=== PATIENT | female | born 1945 | race Caucasian/White ===

== ENCOUNTER → 2017-12-17 | Outpatient (CLI) | payer MEDICARE, OTHER ==
[~2017-12-17] MED LIST: ASPI81CH PO; CHOL10002; CVS CALCIUM 501 EAC2; Coq-10100 MG PO; EPIN.3I IM; FEXPSEER PO; FLAX PO; Glycotrol Caps1 EACH PO; HYDR1TAB94 PO; LORPSEER12 PO; MAGOXI400 PO; NAPR220 PO; RANI150 PO; ZINC15 PO
[2017-12-20 11:32] LABS: HPV Genotype 16 Not Detected (NOTDET); HPV Genotype 18 Not Detected (NOTDET)
[2017-12-27 10:59] LABS: HPV High Risk Other Not Detected (NOTDET)
== END | disposition home or self-care (01) ==
LOC: LAB SHORT 14:50 → OLS 14:50
PROVIDERS: Obstetrics & Gynecology Gynecology
DX: Z91.89 Other specified personal risk factors, not elsewhere classified (principal)
CPT/HCPCS: 87624; G0123

== ENCOUNTER → 2019-01-24 | Outpatient (CLI) | payer MEDICARE, OTHER ==
[2019-01-26 15:06] LABS: HPV 16 Negative (Negative); HPV 18 Negative (Negative); HPV OTHER HR TYPES Negative (Negative)
== END | disposition home or self-care (01) ==
LOC: LAB 18:00 → LAB SHORT 18:00
PROVIDERS: Obstetrics & Gynecology Gynecology
DX: Z91.89 Other specified personal risk factors, not elsewhere classified (principal)
CPT/HCPCS: 87624; G0123

== ENCOUNTER 2019-06-21 08:14 | Day surgery (SDC) | payer MEDICARE, OTHER ==
[~2019-06-21] VITALS: Ht 160 cm; Wt 59.7 kg
[~2019-06-21 08:14] MED LIST changes: +Anti-Diarrheal2 MG PO; +Aspir 8181 MG PO; +CLARITIN10 MG PO; +COENZYME Q10100 MG PO; +GRAPE SEED 501 EACH PO; +MAGNESIUM250 MG PO; +SIMV10 PO; +Selenium100 MCG; +TURMERIC COMPL1 EACH PO; +VITAMIN C500 M1 PO; +VITAMIN D31000 UNI2 PO; +Vitamin B-12250 MCG PO
--- NOTE | 2019-06-21 10:05 | NUR ---
06/21/19 Vonda Mccabe AFTER FIRST DOSE OF PROPOFOL THE PATIENT'S OXYGEN SATURATION DROPPED TO 87%, HER EYES WERE STILL OPENED. A POM MASK WAS APPLIED AND OXYGEN WAS TURNED UP TO 10L.
== END 2019-06-21 11:13 | disposition home or self-care (01) ==
LOC: ORSCSDS 08:14
PROVIDERS: Internal Medicine Gastroenterology
PROC: 0DBM8ZX Excision of Descending Colon, Via Natural or Artificial Opening Endoscopic, Diagnostic (ICD-10-PCS; principal; 2019-06-21 09:45)
PROC: 0DBK8ZX Excision of Ascending Colon, Via Natural or Artificial Opening Endoscopic, Diagnostic (ICD-10-PCS; principal; 2019-06-21 09:45)
DX: R19.5 Other fecal abnormalities (principal); D12.2 Benign neoplasm of ascending colon; D12.4 Benign neoplasm of descending colon; K57.30 Diverticulosis of large intestine without perforation or abscess without bleeding; K64.8 Other hemorrhoids; F32.9 Major depressive disorder, single episode, unspecified; E78.5 Hyperlipidemia, unspecified; Z87.891 Personal history of nicotine dependence; Z79.82 Long term (current) use of aspirin; Z79.899 Other long term (current) drug therapy
CPT/HCPCS: 88305; J0330; J0461; J2250; J2405; J2704; J7120

== ENCOUNTER 2023-05-12 12:23 | Emergency (ER) | payer OTHER ==
[~2023-05-12] VITALS: Ht 160 cm; Wt 59.9 kg
[2023-05-12 12:32] VITALS: BP 119/74
[2023-05-12 13:04] LABS: BASOPHILS ABSOLUTE AUTO 0.04 K/mm3 (0.00-0.23); BASOPHILS PERCENT AUTO 1 % (0-2); EOSINOPHILS ABSOLUTE AUTO 0.12 K/mm3 (0.00-0.68); EOSINOPHILS PERCENT AUTO 1 % (0-6); Hematocrit 38.2 % (33.0-51.0); IMMATURE GRAN ABSOLUTE AUTO 0.05 K/mm3 (0.00-0.10); IMMATURE GRAN PERCENT AUTO 1 % (0-1); LYMPHOCYTES ABSOLUTE AUTO 1.97 K/mm3 (0.84-5.20); LYMPHOCYTES PERCENT AUTO 24 % (21-46); MONOCYTES ABSOLUTE AUTO 0.84 K/mm3 (0.16-1.47); MONOCYTES PERCENT AUTO 10 % (4-13); Mean Corpuscular HGB 34.9 pg (26.0-34.0); Mean Corpuscular Volume 102 fL (80-100); Mean Platelet Volume 11.1 fL (9.1-12.4); NEUTROPHILS ABSOLUTE AUTO 5.37 K/mm3 (1.96-9.15); NEUTROPHILS PERCENT AUTO 64 % (41-73); Platelet Count 216 K/mm3 (150-400); RDW Coefficient Variation 12.6 % (11.7-14.2); RDW Standard Deviation 47.2 fL (35.1-46.3); Red Blood Cell Count 3.73 M/mm3 (3.80-5.20); White Blood Cell Count 8.39 K/mm3 (4.00-11.30)
[2023-05-12 13:21] LABS: Albumin, Blood 3.5 g/dL (3.4-5.0); Bilirubin, Total 0.5 mg/dL (0.1-1.0); Calcium, Blood 8.7 mg/dL (8.5-10.1); Creatinine, Blood 0.56 mg/dL (0.40-1.00); Globulin, Blood 3.4 g/dL (2.2-4.0); Potassium, Blood 4.1 mmol/L (3.5-5.5); Total Protein, Blood 6.9 g/dL (6.4-8.2)
[2023-05-12] MEDS ORDERED: CLIN300 PO (14:30)
== END 2023-05-12 14:48 | disposition home or self-care (01) ==
LOC: ER 12:23
PROVIDERS: Physician Assistant
DX: T81.41XA Infection following a procedure, superficial incisional surgical site, initial encounter (principal); L08.9 Local infection of the skin and subcutaneous tissue, unspecified; Z88.8 Allergy status to other drugs, medicaments and biological substances; Z91.048 Other nonmedicinal substance allergy status; Z79.899 Other long term (current) drug therapy; Z79.82 Long term (current) use of aspirin; Z87.891 Personal history of nicotine dependence
CPT/HCPCS: 80053; 85025; 99283

== ENCOUNTER 2023-05-19 17:25 | Emergency (ER) | payer OTHER ==
[~2023-05-19] VITALS: Ht 160 cm; Wt 62.0 kg
[~2023-05-19 17:25] MED LIST changes: +CLIN300 PO
[2023-05-19 18:00] LABS: BASOPHILS ABSOLUTE AUTO 0.07 K/mm3 (0.00-0.23); BASOPHILS PERCENT AUTO 1 % (0-2); EOSINOPHILS ABSOLUTE AUTO 0.21 K/mm3 (0.00-0.68); EOSINOPHILS PERCENT AUTO 3 % (0-6); Hematocrit 37.7 % (33.0-51.0); Hemoglobin 12.9 g/dL (11.5-16.0); IMMATURE GRAN ABSOLUTE AUTO 0.03 K/mm3 (0.00-0.10); IMMATURE GRAN PERCENT AUTO 0 % (0-1); LYMPHOCYTES ABSOLUTE AUTO 2.41 K/mm3 (0.84-5.20); LYMPHOCYTES PERCENT AUTO 29 % (21-46); MONOCYTES ABSOLUTE AUTO 0.74 K/mm3 (0.16-1.47); MONOCYTES PERCENT AUTO 9 % (4-13); Mean Corpuscular HGB 34.6 pg (26.0-34.0); Mean Corpuscular HGB Conc 34.2 g/dL (31.5-36.5); Mean Corpuscular Volume 101 fL (80-100); Mean Platelet Volume 10.8 fL (9.1-12.4); NEUTROPHILS ABSOLUTE AUTO 4.75 K/mm3 (1.96-9.15); NEUTROPHILS PERCENT AUTO 58 % (41-73); Platelet Count 247 K/mm3 (150-400); RDW Coefficient Variation 12.1 % (11.7-14.2); RDW Standard Deviation 45.1 fL (35.1-46.3); Red Blood Cell Count 3.73 M/mm3 (3.80-5.20); White Blood Cell Count 8.21 K/mm3 (4.00-11.30)
[2023-05-19 18:13] LABS: C-REACTIVE PROTEIN, EXT RANGE 0.575 mg/dL (0.000-0.300)
[2023-05-19 18:15] LABS: Albumin, Blood 3.7 g/dL (3.4-5.0); Bilirubin, Total 0.3 mg/dL (0.1-1.0); Bun/Creatinine Ratio 17.2 (12.0-20.0); Calcium, Blood 9.1 mg/dL (8.5-10.1); Creatinine, Blood 0.7 mg/dL (0.40-1.00); Globulin, Blood 3.7 g/dL (2.2-4.0); Potassium, Blood 4.3 mmol/L (3.5-5.5); Total Protein, Blood 7.4 g/dL (6.4-8.2)
[2023-05-19 22:10] VITALS: BP 108/54
== END 2023-05-19 22:22 | disposition home or self-care (01) ==
LOC: ER 17:25
PROVIDERS: Student in an Organized Health Care Education/Training Program
DX: T86.821 Skin graft (allograft) (autograft) failure (principal); X58.XXXA Exposure to other specified factors, initial encounter; Z87.891 Personal history of nicotine dependence; Z91.013 Allergy to seafood; Z88.8 Allergy status to other drugs, medicaments and biological substances; Z91.09 Other allergy status, other than to drugs and biological substances; Z79.82 Long term (current) use of aspirin; Z79.899 Other long term (current) drug therapy
CPT/HCPCS: 36415; 80053; 83605; 85025; 85651; 86140; 96374; 99284-25; A9270; J3370; J7050

== ENCOUNTER 2025-01-28 11:49 | Inpatient (IN) | payer OTHER ==
[~2025-01-28] VITALS: Ht 160 cm; Wt 66.9 kg
[~2025-01-28 11:49] MED LIST changes: +SELENIUM200 MC3 PO; -Selenium100 MCG; -VITAMIN D31000 UNI2 PO; +VITAMIN D350 MC3 PO
[2025-01-28] MEDS ORDERED: HYDROmorphone HCl/Pf 1MG SYR IV ONE ×2 (13:20→15:00)
[2025-01-28 13:37] LABS: BASOPHILS ABSOLUTE AUTO 0.05 K/mm3 (0.00-0.23); BASOPHILS PERCENT AUTO 0 % (0-2); EOSINOPHILS ABSOLUTE AUTO 0.08 K/mm3 (0.00-0.68); EOSINOPHILS PERCENT AUTO 1 % (0-6); Hematocrit 38.5 % (33.0-51.0); Hemoglobin 13.3 g/dL (11.5-16.0); IMMATURE GRAN ABSOLUTE AUTO 0.06 K/mm3 (0.00-0.10); IMMATURE GRAN PERCENT AUTO 1 % (0-1); LYMPHOCYTES ABSOLUTE AUTO 1.34 K/mm3 (0.84-5.20); LYMPHOCYTES PERCENT AUTO 10 % (21-46); MONOCYTES ABSOLUTE AUTO 0.99 K/mm3 (0.16-1.47); MONOCYTES PERCENT AUTO 8 % (4-13); Mean Corpuscular HGB 36.5 pg (26.0-34.0); Mean Corpuscular HGB Conc 34.5 g/dL (31.5-36.5); Mean Corpuscular Volume 106 fL (80-100); Mean Platelet Volume 11.4 fL (9.1-12.4); NEUTROPHILS ABSOLUTE AUTO 10.56 K/mm3 (1.96-9.15); NEUTROPHILS PERCENT AUTO 81 % (41-73); Platelet Count 180 K/mm3 (150-400); RDW Standard Deviation 50.4 fL (35.1-46.3); Red Blood Cell Count 3.64 M/mm3 (3.80-5.20); White Blood Cell Count 13.08 K/mm3 (4.00-11.30)
[2025-01-28 13:54] LABS: Albumin, Blood 3.6 g/dL (3.4-5.0); Albumin/Globulin Ratio 1.2 (0.8-1.8); Bilirubin, Total 0.6 mg/dL (0.1-1.0); Bun/Creatinine Ratio 25.4 (12.0-20.0); Calcium, Blood 8.9 mg/dL (8.5-10.1); Creatinine, Blood 0.55 mg/dL (0.40-1.00); Globulin, Blood 3.1 g/dL (2.2-4.0); Potassium, Blood 4.7 mmol/L (3.5-5.5); Total Protein, Blood 6.7 g/dL (6.4-8.2)
[2025-01-28 15:33] LABS: International Normalized Ratio 1.02; Prothrombin Time Results 10.9 Sec (9.7-11.5)
[2025-01-28 15:37] VITALS: BP 129/61
[2025-01-28] MEDS ORDERED: Morphine Sulfate 4 MG/1 ML Injection IV PRN (15:50)
[2025-01-28] MEDS ORDERED: Ondansetron HCl 2 MG / ML 2ML Vial IV PRN (15:50)
--- NOTE | 2025-01-28 16:39 | NUR ---
ARRIVAL PT ARRIVED AT 1530 FROM ER. R HIP FX W/EXTERNAL ROTATION GLF. PULSE AND SENSATION INTACT. RLE COLD TO TOUCH SIMILAR TO LLE. CAP REFILL < 3 SECONDS. WITNESSED FALL W/O LOC. A&O X4. PT STATES PAIN TOLERABLE, INCREASES WITH MOVEMENT. RECEIVED X1 DOSE OF DILAUDID IN ER PER EMAR. VSS. ON 2L O2 VIA NASAL CANNULA. DENIES SOB. FAMILY AT BEDSIDE. CALL LIGHT IN REACH.
[2025-01-28 18:44] VITALS: BP 126/53
[2025-01-28] MEDS ORDERED: Heparin Sodium,Porcine 5,000 UNIT/0.5 ML SDV SC SCH (21:00)
[2025-01-28] MEDS ORDERED: Lactated Ringer's 1,000 ML IV SCH (23:55)
[2025-01-29] VITALS (19 sets, daily range): BP systolic 111–154; BP diastolic 50–93
--- NOTE | 2025-01-29 04:17 | NUR ---
SHIFT SUMMARY PATIENT IS AOX4, R HIP IS EXTERNALLY ROTATED AND SHORTENED. PEDAL PULSES +3, ABLE TO WIGGLE ALL TOES. NPO AFTER MIDNIGHT. IV FLUIDS RUNNING @ 100/HR. PUREWICK IN PLACE, VOIDING. MEDICATED FOR PAIN PER ORDERS. VSS. ON 2L NC AND CONT. BIOX IN PLACE. SATS REMAIN ABOVE 93%. CALL LIGHT IN REACH.
[2025-01-29] MEDS ORDERED: Tranexamic Acid 100 ML IV SCH (08:55)
[2025-01-29] MEDS ORDERED: Lactated Ringer's 1,000 ML IV SCH (08:55)
[2025-01-29] MEDS ORDERED: Chlorhexidine Mouth Care 15 ML UDC MT SCH (08:55)
[2025-01-29] MEDS ORDERED: Acetaminophen 500 MG Tab PO SCH (08:55)
[2025-01-29] MEDS ORDERED: CeFAZolin Sodium 2,000 MG in NS 100 ML IV SCH ×2 (08:55→18:00)
--- NOTE | 2025-01-29 09:07 | NUR ---
DR WASSERMAN IN TO SEE PT. PT TO OR, FAMILY PRESENT.
[2025-01-29] MEDS ORDERED: propofoL 50 ML IV ONE (09:26)
[2025-01-29] MEDS ORDERED: Magnesium Sulfate 500 MG / ML 2ML Vial ONE (09:26)
[2025-01-29] MEDS ORDERED: Rocuronium Bromide 10 MG/ML 5ML Injection IV ONE ×2 (09:27→11:09)
[2025-01-29] MEDS ORDERED: Lidocaine HCl 2% 20 ML MDV ONE ×2 (09:27→11:09)
[2025-01-29] MEDS ORDERED: FentaNYL Citrate 50 MCG/ML 2 ML Injection ONE (09:27)
--- NOTE | 2025-01-29 09:27 | NUR ---
PT HAS 20G IV IN L WRIST THAT FLOWS WELL TO GRAVITY, SHOWS NO SIGNS OF INFILTRATION, NO SWELLING, NO DRAINAGE NOTED.
[2025-01-29] MEDS ORDERED: Ondansetron HCl 2 MG / ML 2ML Vial ONE ×3 (09:28→11:59)
[2025-01-29] MEDS ORDERED: Metoclopramide HCl 5MG / ML 2ML Vial ONE ×3 (09:28→11:45)
[2025-01-29] MEDS ORDERED: Bupivacaine 0.25% Epi 1:200000 30 ML Vial ONE (10:16)
[2025-01-29] MEDS ORDERED: Sugammadex Sodium 200 MG/2ML SDV (100 MG/ML) ONE (11:09)
[2025-01-29] MEDS ORDERED: FentaNYL Citrate 50 MCG/ML 2 ML Injection IV PRN ×2 (11:10→11:15)
[2025-01-29] MEDS ORDERED: Metoclopramide HCl 5MG / ML 2ML Vial IV PRN (11:10)
[2025-01-29] MEDS ORDERED: Ondansetron HCl 2 MG / ML 2ML Vial IV PRN (11:15)
[2025-01-29] MEDS ORDERED: HYDROmorphone HCl/Pf 1MG SYR IV PRN ×2 (11:15)
--- NOTE | 2025-01-29 12:35 | NUR ---
pt arrived back to room from pacu vss. a&ox4. denies pain. slightly nauseated. rec'd nausea meds in pacu. placed cool compress on forehead. call light in reach. purewick placed. family bedside.
[2025-01-29] MEDS ORDERED: HYDROcodone 5-APAP 325 TAB PO PRN (13:55)
--- NOTE | 2025-01-29 15:13 | NUR ---
Pt. is resting in bed, but responds when I enter the room. Pt. is pleasant. Facilitate a life review and consider matters of lenora and belief. Listen with interest and empathy. Pt. verbalized that she was still experiencing discomfort. Prayed for the pt. Pt. verbalized gratitude and welcomed this production floater to return.
--- NOTE | 2025-01-29 17:20 | NUR ---
summary NO ACUTE CHANGES SINCE ARRIVING BACK TO UNIT FROM PACU. MEDICATED PER ORDERS FOR PAIN AND THEN PT TOOK NAP. NOW AWAKE. DID NOT FEEL UP TO WORKING WITH THERAPY, FELT COULD NOT RAISE LEG. CALL LIGHT IN REACH. PUREWICK DRAINING YELLOW URINE.
--- NOTE | 2025-01-29 18:57 | NUR ---
BEDSIDE REPORT COMPLETED. PT USING PUREWICK. CALL LIGHT IN REACH. SPOUSE BEDSIDE.
[2025-01-30 00:07] VITALS: BP 125/54
[2025-01-30 04:26] VITALS: BP 120/53
[2025-01-30 05:34] LABS: BASOPHILS ABSOLUTE AUTO 0.05 K/mm3 (0.00-0.23); BASOPHILS PERCENT AUTO 1 % (0-2); EOSINOPHILS ABSOLUTE AUTO 0.31 K/mm3 (0.00-0.68); EOSINOPHILS PERCENT AUTO 3 % (0-6); Hematocrit 27.2 % (33.0-51.0); Hemoglobin 9.2 g/dL (11.5-16.0); IMMATURE GRAN ABSOLUTE AUTO 0.05 K/mm3 (0.00-0.10); IMMATURE GRAN PERCENT AUTO 1 % (0-1); LYMPHOCYTES ABSOLUTE AUTO 2.26 K/mm3 (0.84-5.20); LYMPHOCYTES PERCENT AUTO 22 % (21-46); MONOCYTES PERCENT AUTO 10 % (4-13); Mean Corpuscular HGB 36.5 pg (26.0-34.0); Mean Corpuscular HGB Conc 33.8 g/dL (31.5-36.5); Mean Corpuscular Volume 108 fL (80-100); Mean Platelet Volume 11.7 fL (9.1-12.4); NEUTROPHILS PERCENT AUTO 64 % (41-73); Platelet Count 120 K/mm3 (150-400); RDW Coefficient Variation 12.9 % (11.7-14.2); RDW Standard Deviation 51.4 fL (35.1-46.3); Red Blood Cell Count 2.52 M/mm3 (3.80-5.20); White Blood Cell Count 10.27 K/mm3 (4.00-11.30)
[2025-01-30 05:51] LABS: Bun/Creatinine Ratio 23.9 (12.0-20.0); Calcium, Blood 7.9 mg/dL (8.5-10.1); Creatinine, Blood 0.46 mg/dL (0.40-1.00)
--- NOTE | 2025-01-30 06:31 | NUR ---
SHIFT SUMMARY: NO ACUTE EVENTS DURING SHIFT. PT C/O INABILITY TO MOVE RIGHT LEG OFF OF BED; PT ABLE TO FEEL TOUCH OF RIGHT LEG, FOOT AND MOVE FOOT, ACTIVATE QUAD MUSCLES. PT ABLE TO ASSIST IN ROLLING FOR LINEN CHANGE. PT MEDICATED PRN FOR PAIN. PT TOLERATING PO PILLS HOWEVER DOES REPORT PAIN AT BOTH RIGHT HIP AND RIGHT ARM. PT DID NOT GET UP DURING SHIFT SHE STATED SHE WAS NOT READY. PUREWICK IN PLACE THROUGHOUT NIGHT. IV SALINE LOCKED.
[2025-01-30 06:55] VITALS: BP 117/53
--- NOTE | 2025-01-30 07:36 | NUR ---
BAN/PT IN TO SEE PT.
--- NOTE | 2025-01-30 10:28 | NUR ---
DR HARRIS IN TO SEE PT.
[2025-01-30] MEDS ORDERED: HYDROcodone 5-APAP 325 TAB PO PRN ×2 (10:30→16:40)
[2025-01-30] MEDS ORDERED: Enoxaparin 40 MG/0.4 ML SYR SC SCH (14:00)
[2025-01-30 14:37] VITALS: BP 98/51
--- NOTE | 2025-01-30 15:42 | NUR ---
PT'S TEMP 100. IS WAS PROVIDED AND INSTRUCTED PT HOW TO USE. REVISITED IMPORTANCE OF USING IS TO PREVENT PNEUMONIA. PT VERBALIZED UNDERSTANDING.
--- NOTE | 2025-01-30 17:19 | NUR ---
SUMMARY PT SPENT MOST OF DAY UP IN RECLINER. HEAVY TWO PERSON ASSIST TO STAND AND PIVOT. NOW BACK TO BED. PT HAS REPORTED PAIN NO LOWER THAN 8/10 T/O DAY. SPOKE TO DR HARRIS THIS EVENING AND OBTAINED NEW ORDERS FOR 1-2 TAB NORCO Q4PRN. GAVE SECOND NORCO PER ORDERS. PT VOIDING GARCIA YELLOW URINE VIA PUREWICK. DRESSINGS TO RLE CDI. PT HAD TEMP OF 100 THIS AFTERNOON. PROVIDED IS AND INSTRUCTED PT ON USE. PT VERBALIZED UNDERSTANDING AND DEMONSTRATED. CALL LIGHT IN REACH.
[2025-01-30 19:33] VITALS: BP 112/47
[2025-01-31 00:41] VITALS: BP 107/50
--- NOTE | 2025-01-31 01:01 | NUR ---
0040: PT CALLED TO NURSE'S STATION; RN TO ROOM AND PT ASKED FOR VITALS TO BE TAKEN. OXYGEN SATURATION IN THE MID 80S ON ROOM AIR AND LOW GRADE FEVER AT 99-99.9. PT REPORTS THAT SHE IS USING INCENTIVE SPIROMETER WHILE AWAKE. 2L OXYGEN PLACED VIA NC TO PATIENT AND OXYGEN SATURATION INCREASED TO LOW TO MID 90S. PT C/O PAIN TO RIGHT HIP AND RIGHT ARM. PT REPOSITIONED IN BED AND IS ABLE TO REPOSITION SELF FOR ADJUSTMENTS OF OFFLOADING PRESSURE.
--- NOTE | 2025-01-31 01:43 | NUR ---
0130: RN TO ROOM TO MEDICATE PT FOR PAIN PER EMAR. PT REPORTS SLEEPING BETTER WITH OXYGEN ON AND ROOM COOLED DOWN AFTER LAST RN VISIT TO ROOM. PT HAS NO OTHER NEEDS AT THIS TIME. CALL LIGHT WITHIN REACH.
--- NOTE | 2025-01-31 03:07 | NUR ---
RN TO ROOM TO ROUND; PT SLEEPING WITH NASAL CANULA IN PLACE. UNLABORED BREATHING. CALL LIGHT WITHIN REACH.
--- NOTE | 2025-01-31 04:43 | NUR ---
RN TO ROOM; PT SLEEPING WITH EQUAL AND UNLABORED BREATHING. CALL LIGHT WITHIN REACH.
[2025-01-31 04:45] VITALS: BP 107/64
[2025-01-31 05:05] LABS: BASOPHILS ABSOLUTE AUTO 0.03 K/mm3 (0.00-0.23); BASOPHILS PERCENT AUTO 0 % (0-2); EOSINOPHILS ABSOLUTE AUTO 0.32 K/mm3 (0.00-0.68); EOSINOPHILS PERCENT AUTO 3 % (0-6); Hematocrit 25.1 % (33.0-51.0); Hemoglobin 8.6 g/dL (11.5-16.0); IMMATURE GRAN ABSOLUTE AUTO 0.02 K/mm3 (0.00-0.10); IMMATURE GRAN PERCENT AUTO 0 % (0-1); LYMPHOCYTES ABSOLUTE AUTO 2.87 K/mm3 (0.84-5.20); LYMPHOCYTES PERCENT AUTO 31 % (21-46); MONOCYTES ABSOLUTE AUTO 0.92 K/mm3 (0.16-1.47); MONOCYTES PERCENT AUTO 10 % (4-13); Mean Corpuscular HGB 36.9 pg (26.0-34.0); Mean Corpuscular HGB Conc 34.3 g/dL (31.5-36.5); Mean Corpuscular Volume 108 fL (80-100); Mean Platelet Volume 11.6 fL (9.1-12.4); NEUTROPHILS ABSOLUTE AUTO 5.23 K/mm3 (1.96-9.15); NEUTROPHILS PERCENT AUTO 56 % (41-73); Platelet Count 118 K/mm3 (150-400); RDW Coefficient Variation 12.7 % (11.7-14.2); RDW Standard Deviation 49.8 fL (35.1-46.3); Red Blood Cell Count 2.33 M/mm3 (3.80-5.20); White Blood Cell Count 9.39 K/mm3 (4.00-11.30)
[2025-01-31 05:21] LABS: Bun/Creatinine Ratio 26.1 (12.0-20.0); Calcium, Blood 7.7 mg/dL (8.5-10.1); Creatinine, Blood 0.5 mg/dL (0.40-1.00); Potassium, Blood 3.9 mmol/L (3.5-5.5)
--- NOTE | 2025-01-31 05:35 | NUR ---
SHIFT SUMMARY: PT WITH LOW-GRADE FEVER DURING SHIFT. PT HAD EPISODE OF DESATURATION DURING NOC SHIFT AND 2L O2 VIA NC WAS PLACED WITH OXYGEN SATURATION RECOVERY TO ABOVE 92%. RIGHT HIP PRESSURE DRESSINGS CDI. PT MEDICATED PER NOV FOR PAIN THROUGHOUT SHIFT. PT DECLINED GETTING UP TO COMMODE AND PUREWICK REMAINS IN PLACE. PT EDUCATED ON IMPORTANCE OF GETTING UP FOR MOBILITY AND ON INCENTIVE SPIROMETER USE.
[2025-01-31 07:03] VITALS: BP 111/57
[2025-01-31] MEDS ORDERED: Cyanocobalamin 500 MCG Tab PO SCH (09:00)
[2025-01-31] MEDS ORDERED: Cholecalciferol 1000 Unit Tablet (=25MCG) PO SCH (09:00)
[2025-01-31] MEDS ORDERED: Ascorbic Acid 500 MG Tab PO SCH (09:00)
[2025-01-31 11:43] LABS: Hematocrit 26.3 % (33.0-51.0); Hemoglobin 8.8 g/dL (11.5-16.0)
[2025-01-31] MEDS ORDERED: Docusate Sodium/Senna 1 Tab PO PRN (13:35)
--- NOTE | 2025-01-31 13:55 | NUR ---
Pt. is resting but responds to this java analyst when I enter the room. pt. is pleasant but seems a little unsettled about going to [facility]. Normalized the Pt. Experience and Pt. displayed evidence of understanding and agreement. Facilitate more life review and then prayed for the Pt. Pts. son and DIL are present as we finished praying. Pt. verbalized gratitude fo r the spiritual care visit as did her son.
[2025-01-31 15:11] VITALS: BP 122/60
--- NOTE | 2025-01-31 15:20 | NUR ---
REPORT PASSED TO SAEID NEGRON AT THIS TIME
--- NOTE | 2025-01-31 16:47 | NUR ---
SHIFT SUMMARY THIS RN ASSUMED CARE FROM TOSHA BREAUX AT APPROX 1530. PATIENT ALERT AND ORIENTED X4. COMMUNICATES NEEDS EFFECTIVELY. VSS. AFEBRILE. SBP 110s-120s. MAP >65. DENIES CHEST PAIN, PRESSURE. ON 2L VIA NC, SATs >90%. ENCOURAGING USE OF INCENTIVE SPIROMETER AND COUGHING. UP IN CHAIR. 1P ASSIST FWW GB. POD 2 R HIP RODDING - X3 SITES C/D/I. MANAGING PAIN PER EMAR AND WITH ICEPACK. TOLERATING DIET. DENIES BM SINCE PRIOR TO ADMISSION - BOWEL CARE STARTED. VOIDING. CALL LIGHT IN REACH.
[2025-01-31 19:43] VITALS: BP 104/58
[2025-02-01 00:13] VITALS: BP 111/54
[2025-02-01 04:18] LABS: BASOPHILS ABSOLUTE AUTO 0.05 K/mm3 (0.00-0.23); BASOPHILS PERCENT AUTO 1 % (0-2); EOSINOPHILS ABSOLUTE AUTO 0.29 K/mm3 (0.00-0.68); EOSINOPHILS PERCENT AUTO 3 % (0-6); Hematocrit 24.8 % (33.0-51.0); Hemoglobin 8.4 g/dL (11.5-16.0); IMMATURE GRAN ABSOLUTE AUTO 0.03 K/mm3 (0.00-0.10); IMMATURE GRAN PERCENT AUTO 0 % (0-1); LYMPHOCYTES ABSOLUTE AUTO 2.91 K/mm3 (0.84-5.20); LYMPHOCYTES PERCENT AUTO 31 % (21-46); MONOCYTES ABSOLUTE AUTO 0.87 K/mm3 (0.16-1.47); MONOCYTES PERCENT AUTO 9 % (4-13); Mean Corpuscular HGB 36.2 pg (26.0-34.0); Mean Corpuscular HGB Conc 33.9 g/dL (31.5-36.5); Mean Corpuscular Volume 107 fL (80-100); Mean Platelet Volume 11.3 fL (9.1-12.4); NEUTROPHILS ABSOLUTE AUTO 5.35 K/mm3 (1.96-9.15); NEUTROPHILS PERCENT AUTO 56 % (41-73); Platelet Count 137 K/mm3 (150-400); RDW Coefficient Variation 12.5 % (11.7-14.2); Red Blood Cell Count 2.32 M/mm3 (3.80-5.20)
[2025-02-01 05:08] VITALS: BP 106/57
[2025-02-01 05:26] LABS: Bun/Creatinine Ratio 33.3 (12.0-20.0); Creatinine, Blood 0.48 mg/dL (0.40-1.00); Potassium, Blood 3.6 mmol/L (3.5-5.5)
[2025-02-01 07:05] VITALS: BP 100/53
--- NOTE | 2025-02-01 07:45 | NUR ---
SHIFT SUMMARY NOC. PT POD 3 FOR RIGHT HIP RODDING S/P GLF. PT'S DRESSINGS X3 ARE C/D/I. PT MEDICATED FOR PAIN WITH REPORTED RELIEF, PT HAD BETTER PAIN CONTROL WITH 2 TABS OF NORCO OVER 1. PT UP TO BSC TO VOID. PT MAKES NEEDS KNOWN, CALL LIGHT IN REACH.
[2025-02-01] MEDS ORDERED: Polyethylene Glycol 3350 17 gm PO PRN (10:50)
--- NOTE | 2025-02-01 12:00 | NUR ---
Pt. is awake in a chair when she welcomes my visit. Spouse is present at bedside. Facilitated an update. Pt. is mildly unsetted about delays with insourance approvals for her continued care. Listen with interest and empathty. Seek to normalize the Pt. experience. Pt. displays evidence of understanding and agreement. Considered matters of lenora and belief. Prayed with Pt. Both Pt. and spouse verbalize gratitude forthe spiritual care visit.
[2025-02-01] MEDS ORDERED: DOCUZEN 8.6-501 EACH PO (14:48)
[2025-02-01 14:52] VITALS: BP 98/44
[2025-02-01] MEDS ORDERED: ENOX40I SC (14:52)
[2025-02-01] MEDS ORDERED: POLYETHYLENE G500 G1 PO (14:52)
[2025-02-01] MEDS ORDERED: HYDR1TAB94 PO (14:52)
[2025-02-01 14:53] VITALS: BP 105/55
--- NOTE | 2025-02-01 15:40 | NUR ---
PATIENT [facility]IA [employer] [facility]. DC PACKET AND HARD SCRIPT FOR [employer] SENT WITH JAZZ MUSICIAN. REPORT CALLED TO [facility]. BELONGINGS TAKEN BY FAMILY. PATIENT DENIES ANY FURTHER QUESTIONS OR CONCERNS.
== END 2025-02-01 15:40 | DRG 481 ==
LOC: ER 11:49 → SURS 14:34
PROVIDERS: Family Medicine; Orthopaedic Surgery; Student in an Organized Health Care Education/Training Program; ADMIT Internal Medicine
PROC: 0QS636Z Reposition Right Upper Femur with Intramedullary Internal Fixation Device, Percutaneous Approach (ICD-10-PCS; principal; 2025-01-29 10:30)
DX: S72.141A Displaced intertrochanteric fracture of right femur, initial encounter for closed fracture (principal); C34.90 Malignant neoplasm of unspecified part of unspecified bronchus or lung; E78.5 Hyperlipidemia, unspecified; M19.90 Unspecified osteoarthritis, unspecified site; M85.80 Other specified disorders of bone density and structure, unspecified site; F41.9 Anxiety disorder, unspecified; D69.6 Thrombocytopenia, unspecified; D64.9 Anemia, unspecified; Z91.013 Allergy to seafood; Z88.8 Allergy status to other drugs, medicaments and biological substances; Z91.048 Other nonmedicinal substance allergy status; Z79.899 Other long term (current) drug therapy; Z79.82 Long term (current) use of aspirin; Z79.2 Long term (current) use of antibiotics; Z87.19 Personal history of other diseases of the digestive system; Z90.49 Acquired absence of other specified parts of digestive tract; Z90.710 Acquired absence of both cervix and uterus; Z90.722 Acquired absence of ovaries, bilateral; Z87.891 Personal history of nicotine dependence; Z98.49 Cataract extraction status, unspecified eye; Z98.890 Other specified postprocedural states; W18.39XA Other fall on same level, initial encounter
CPT/HCPCS: 36415; 72170; 73552; 80048; 80053; 85014; 85018; 85025; 85610; 93005; 93010; 96374; 97110; 97116; 97161; 97530; 99285-25; A9270; C1713; C1769; J0690; J1171; J1650; J2270; J2405; J2704; J2765; J3010; J3475; J7120